=== PATIENT | female | born 2000 | race Caucasian/White ===

== ENCOUNTER 2022-07-14 18:55 | Outpatient (CLI) | payer BC, SELFPAY | END 2022-07-14 18:56 | disposition home or self-care (01) | LOC: LKVREF 07-19 16:27 | PROVIDERS: Visit Provider Nurse Practitioner Family | DX: N39.0 Urinary tract infection, site not specified (principal); R30.0 Dysuria; N89.8 Other specified noninflammatory disorders of vagina | CPT/HCPCS: 87086 ==